=== PATIENT | female | born 1975 | race Asian ===

== ENCOUNTER 2016-04-22 14:36 | Emergency (ER) | payer OTHER ==
[~2016-04-22] VITALS: Ht 157.5 cm; Wt 53.7 kg
[~2016-04-22 14:36] MED LIST: ATARAX,VISTARIL25 MG PO; CALCIUM 500 +1 EACH PO; CIPROFLOXACIN500 M1 PO; CYMBALTA30 MG PO; DAILY VITE1 EAC1 PO; DIMENHYDRINATE50 MG PO; DOCU LIQUI50 MG/5 ML PO; FAMOTIDINE40 MG PO; FLEXERIL10 MG PO; HORIZANT600 MG PO; HYDROCODON-ACE1 EAC7 PO; INDOCIN25 MG PO; LYRICA75 MG PO; MECLIZINE HCL25 MG PO; METOCLOPRAMIDE H5 MG PO; MIRAPEX1.5 MG PO; MOTRIN600 MG PO; NAPROSYN500 MG PO; NEURONTIN300 MG PO; NEURONTIN600 MG PO; NOHOMEMEDS; NORCO 5/3251 TABLET PO; PAXIL20 MG PO; PERCOCET 5/31 TABLET PO; POLYETHYLENE GL17 GM PO; PREDNISONE10 M1 PO; PROTONIX40 MG PO; PROVENTIL,VENTOL2 MG PO; PROZAC40 MG PO; RANITIDINE HCL150 MG PO; ROPINIROLE HC0.25 MG PO; ROPINIROLE HCL1 MG PO; TRAMADOL HCL50 MG PO; TRAZODONE HCL50 MG PO; ULTRAM50 MG PO; VALIUM5 MG PO; VALTREX1000 MG PO; VENTOLIN HFA18 GM IH; VITAMIN B12 100MCG PO; WELLBUTRIN100 MG PO
[2016-04-22] MEDS ORDERED: MEDROL DOSEPAK4 MG PO (15:41)
[2016-04-22] MEDS ORDERED: ATARAX,VISTARIL50 MG PO (15:41)
[2016-04-22 15:56] VITALS: BP 117/93
== END 2016-04-22 15:57 | disposition home or self-care (01) ==
LOC: EXP 14:36 → EME 14:36 → EXP 15:57
DX: R21 Rash and other nonspecific skin eruption (principal); L53.9 Erythematous condition, unspecified; L29.9 Pruritus, unspecified; G89.29 Other chronic pain; M79.7 Fibromyalgia; K21.9 Gastro-esophageal reflux disease without esophagitis; F17.200 Nicotine dependence, unspecified, uncomplicated
CPT/HCPCS: 99281; 99284; Q0177

== ENCOUNTER 2016-07-22 09:29 | Emergency (ER) | payer OTHER ==
[~2016-07-22] VITALS: Ht 157.5 cm; Wt 53.6 kg
[~2016-07-22 09:29] MED LIST changes: +ATARAX,VISTARIL50 MG PO; +MEDROL DOSEPAK4 MG PO
[2016-07-22 10:26] LABS: HEMATOCRIT 40.5 % (36.0-46.0); MCH 32.7 PG (29.0-34.0); MCHC 34.6 G/DL (30.0-36.0); MCV 94.6 FL (83-99); MEAN PLAT.VOLUME 9.3 uM^3 (9.5-12.4); PLATELET COUNT 320 K/uL (156-360); RBC DIS.WIDTH-CV 11.8 % (11.8-14.6); RBC DIS.WIDTH-SD 40.8 % (39-53); RED BLOOD COUNT 4.28 M/uL (3.80-5.20); WHITE BLOOD COUNT 6.5 K/uL (4.1-10.2)
[2016-07-22 10:35] LABS: ADD MIUA? NO; BILIRUBIN NEGATIVE; BLOOD NEGATIVE; COLOR STRAW ((YELLOW)); GLUCOSE (STRIP) NEGATIVE; KETONES NEGATIVE; LEUKOCYTES NEGATIVE; NITRITE NEGATIVE; PROTEIN (STRIP) NEGATIVE; SPECIFIC GRAVITY 1.008 (1.000-1.030); UROBILINOGEN 0.2 MG/DL (0.2-1.0)
[2016-07-22 10:37] LABS: CHLORIDE 112 mEq/L (99-109); POTASSIUM 4.5 mEq/L (3.7-5.4); SODIUM 144 mEq/L (136-147)
[2016-07-22 10:39] LABS: GLUCOSE 97 mg/dL (70-99)
[2016-07-22 10:40] LABS: ANION GAP 13 MEQ/L (2-14)
[2016-07-22 10:42] LABS: SERUM ETHYL ALCOHOL < 10 mg/dL
[2016-07-22 10:43] LABS: GFR ESTIMATE (CALCULATED) > 59 mL/min/; UREA NITROGEN (BUN) 11 mg/dL (9-23)
[2016-07-22 11:25] LABS: AMPHETAMINE NEGATIVE (500 ng/mL); BARBITURATES NEGATIVE (200 ng/mL); BENZODIAZEPINES NEGATIVE (150 ng/mL); COCAINE NEGATIVE (150 ng/mL); INTERNAL CONTROLS VALID? YES; METHADONE NEGATIVE (200 ng/mL); METHAMPHETAMINE NEGATIVE (500 ng/mL); OPIATES (MORPHINE) NEGATIVE (100 ng/mL); OXYCODONE NEGATIVE (100 ng/mL); PHENCYCLIDINE NEGATIVE (25 ng/mL); PROPOXYPHENE NEGATIVE (300 ng/mL); THC CANNABINOIDS NEGATIVE (50 ng/mL); TRICYCLIC ANTIDEPRESSANTS NEGATIVE (300 ng/mL)
[2016-07-22 12:00] VITALS: BP 105/70
== END 2016-07-22 12:00 | disposition home or self-care (01) ==
LOC: EME 09:29
PROVIDERS: Emergency Medicine
DX: S40.029A Contusion of unspecified upper arm, initial encounter (principal); M25.512 Pain in left shoulder; M25.562 Pain in left knee; M25.552 Pain in left hip; M54.89 Other dorsalgia; M54.2 Cervicalgia; V49.40XA Driver injured in collision with unspecified motor vehicles in traffic accident, initial encounter; G89.29 Other chronic pain; Z72.0 Tobacco use
CPT/HCPCS: 72040; 72070; 73030; 73502; 73564; 80048; 81003; 85027; 99281; 99285; G0480; J2405; J3010

== ENCOUNTER 2016-09-20 23:14 | Emergency (ER) | payer OTHER ==
[~2016-09-20] VITALS: Ht 157.5 cm; Wt 55.0 kg
[2016-09-21 00:19] LABS: HEMATOCRIT 37.2 % (36.0-46.0); MCH 32.7 PG (29.0-34.0); MCHC 34.7 G/DL (30.0-36.0); MCV 94.4 FL (83-99); MEAN PLAT.VOLUME 9.4 uM^3 (9.5-12.4); PLATELET COUNT 325 K/uL (156-360); RBC DIS.WIDTH-SD 42.4 % (39-53); RED BLOOD COUNT 3.94 M/uL (3.80-5.20); WHITE BLOOD COUNT 9.6 K/uL (4.1-10.2)
[2016-09-21 00:28] LABS: CHLORIDE 111 mEq/L (99-109); POTASSIUM 3.5 mEq/L (3.7-5.4); SODIUM 141 mEq/L (136-147)
[2016-09-21 00:30] LABS: GLUCOSE 88 mg/dL (70-99)
[2016-09-21 00:32] LABS: ANION GAP 9 MEQ/L (2-14); TOTAL BILIRUBIN 0.6 mg/dL (0.0-1.0)
[2016-09-21 00:34] LABS: ALKALINE PHOSPHATASE 54 IU/L (3-129); GFR ESTIMATE (CALCULATED) > 59 mL/min/
[2016-09-21 00:35] LABS: UREA NITROGEN (BUN) 11 mg/dL (9-23)
[2016-09-21 00:37] LABS: LIPASE 24 U/L (1.0-51.0)
[2016-09-21 00:52] LABS: ADD MIUA? YES; BILIRUBIN NEGATIVE; BLOOD NEGATIVE; COLOR YELLOW ((YELLOW)); GLUCOSE (STRIP) NEGATIVE; KETONES 5; LEUKOCYTES TRACE; NITRITE NEGATIVE; PROTEIN (STRIP) 30; SPECIFIC GRAVITY 1.016 (1.000-1.030); UROBILINOGEN 0.2 MG/DL (0.2-1.0)
[2016-09-21 01:14] LABS: RED BLOOD CELLS NONE SEEN /HPF (0-5)
[2016-09-21 01:15] LABS: AMORPHOUS PHOSPHATE CRYSTALS 3+; BACTERIA 1+ /HPF; CASTS NONE SEEN /LPF; CRYSTALS PRESENT; EPITHELIAL CELLS RARE /HPF; MUCUS NONE SEEN /LPF; WHITE BLOOD CELLS 0-5 /HPF (0-5)
[2016-09-21] MEDS ORDERED: REGLAN10 MG PO (01:44)
[2016-09-21] MEDS ORDERED: BENTYL20 MG PO (01:44)
[2016-09-21] MEDS ORDERED: KEFLEX500 MG PO (01:44)
[2016-09-21 02:31] VITALS: BP 133/90
== END 2016-09-21 02:45 | disposition home or self-care (01) ==
LOC: EME 23:14
PROVIDERS: Physician Assistant
DX: N39.0 Urinary tract infection, site not specified (principal); E86.0 Dehydration; R11.2 Nausea with vomiting, unspecified; K21.9 Gastro-esophageal reflux disease without esophagitis; M79.7 Fibromyalgia; F32.9 Major depressive disorder, single episode, unspecified; F17.200 Nicotine dependence, unspecified, uncomplicated; Z91.14 Patient's other noncompliance with medication regimen; Z88.0 Allergy status to penicillin
CPT/HCPCS: 80053; 81003; 83690; 85027; 87086; 99281; 99285; J0696; J1885; J2405; J7030; J7050

== ENCOUNTER 2016-10-29 00:03 | Emergency (ER) | payer OTHER ==
[~2016-10-29] VITALS: Ht 157.5 cm; Wt 53.9 kg
[~2016-10-29 00:03] MED LIST changes: +BENTYL20 MG PO; +KEFLEX500 MG PO; +REGLAN10 MG PO
[2016-10-29 01:07] VITALS: BP 108/79
[2016-10-29 01:15] LABS: POINT-OF-CARE METER ID UU13113702
== END 2016-10-29 01:13 | disposition home or self-care (01) ==
LOC: EME 00:03
PROVIDERS: Emergency Medicine
DX: G43.909 Migraine, unspecified, not intractable, without status migrainosus (principal); H53.2 Diplopia; Z90.710 Acquired absence of both cervix and uterus; Z72.0 Tobacco use
CPT/HCPCS: 82948; 99281; 99284; J1885

== ENCOUNTER 2016-11-02 00:17 | Emergency (ER) | payer OTHER ==
[~2016-11-02] VITALS: Ht 157.5 cm; Wt 54.5 kg
[2016-11-02] MEDS ORDERED: NAPROXEN500 MG PO (01:58)
[2016-11-02 02:11] VITALS: BP 137/70
== END 2016-11-02 02:19 | disposition home or self-care (01) ==
LOC: EME 00:17 → EXP 00:17 → EME 00:17 → EXP 02:19
DX: S83.92XA Sprain of unspecified site of left knee, initial encounter (principal); W18.49XA Other slipping, tripping and stumbling without falling, initial encounter; Y93.F9 Activity, other caregiving; Y92.239 Unspecified place in hospital as the place of occurrence of the external cause; Y99.0 Civilian activity done for income or pay; F41.9 Anxiety disorder, unspecified; F32.9 Major depressive disorder, single episode, unspecified; Z88.0 Allergy status to penicillin
CPT/HCPCS: 73564; 99281; 99284

== ENCOUNTER → 2016-11-07 | Outpatient (CLI) | payer OTHER ==
[~2016-11-07] MED LIST changes: +NAPROXEN500 MG PO
== END | disposition home or self-care (01) ==
LOC: NUC 12:45
DX: R10.13 Epigastric pain (principal)
CPT/HCPCS: 78227; A9537; J2805

== ENCOUNTER 2016-12-28 00:06 | Emergency (ER) | payer OTHER ==
[~2016-12-28] VITALS: Ht 157.5 cm; Wt 51.0 kg
[2016-12-28 00:28] VITALS: BP 118/82
== END 2016-12-28 02:56 | disposition home or self-care (01) ==
LOC: EXP 00:06 → EME 00:06 → EXP 02:56
DX: S80.02XA Contusion of left knee, initial encounter (principal); Y04.0XXA Assault by unarmed brawl or fight, initial encounter; Y93.F9 Activity, other caregiving; Y92.239 Unspecified place in hospital as the place of occurrence of the external cause; Y99.0 Civilian activity done for income or pay; F17.200 Nicotine dependence, unspecified, uncomplicated
CPT/HCPCS: 73564; 99281; 99284

== ENCOUNTER 2017-01-04 21:17 | Emergency (ER) | payer SELFPAY ==
[~2017-01-04] VITALS: Ht 157.5 cm; Wt 52.2 kg
[2017-01-04] MEDS ORDERED: ATARAX,VISTARIL25 MG PO (23:20)
[2017-01-04 23:58] VITALS: BP 132/67
== END 2017-01-05 | disposition home or self-care (01) ==
LOC: EME 21:17 → EXP 21:17
DX: F41.9 Anxiety disorder, unspecified (principal); F17.200 Nicotine dependence, unspecified, uncomplicated
CPT/HCPCS: 99281; 99285; Q0177

== ENCOUNTER 2017-04-13 09:36 | Emergency (ER) | payer OTHER ==
[~2017-04-13] VITALS: Ht 157.5 cm; Wt 52.2 kg
[2017-04-13 10:37] LABS: HEMATOCRIT 37.6 % (36.0-46.0); HEMOGLOBIN 13.2 G/DL (11.9-15.5); MCH 32.6 PG (29.0-34.0); MCHC 35.1 G/DL (30.0-36.0); MCV 92.8 FL (83-99); PLATELET COUNT 358 K/uL (156-360); RBC DIS.WIDTH-CV 12.2 % (11.8-14.6); RED BLOOD COUNT 4.05 M/uL (3.80-5.20); WHITE BLOOD COUNT 5.8 K/uL (4.1-10.2)
[2017-04-13 10:49] LABS: CHLORIDE 112 mEq/L (99-109); SODIUM 139 mEq/L (136-147)
[2017-04-13 10:51] LABS: GLUCOSE 93 mg/dL (70-99)
[2017-04-13 10:55] LABS: CREATININE 0.7 mg/dL (0.6-1.3); GFR ESTIMATE (CALCULATED) > 59 mL/min/
[2017-04-13 10:56] LABS: UREA NITROGEN (BUN) 10 mg/dL (9-23)
[2017-04-13 10:57] LABS: TROP-I INTERPRETATION NEGATIVE; TROPONIN-I < 0.01 ng/mL (0.0-0.30)
[2017-04-13] MEDS ORDERED: MOBIC7.5 MG PO (12:26)
[2017-04-13 12:39] LABS: D-DIMER ELISA < 150.00 ng/mLDDU (<230)
[2017-04-13 12:53] LABS: TROP-I INTERPRETATION NEGATIVE; TROPONIN-I < 0.01 ng/mL (0.0-0.30)
[2017-04-13 13:45] VITALS: BP 107/83
== END 2017-04-13 13:49 | disposition home or self-care (01) ==
LOC: EME 09:36
PROVIDERS: Nurse Practitioner Family
DX: R07.89 Other chest pain (principal); K21.9 Gastro-esophageal reflux disease without esophagitis; M79.7 Fibromyalgia; G25.81 Restless legs syndrome; F41.9 Anxiety disorder, unspecified; F32.9 Major depressive disorder, single episode, unspecified; Z90.710 Acquired absence of both cervix and uterus; F17.200 Nicotine dependence, unspecified, uncomplicated; Z91.040 Latex allergy status; Z88.2 Allergy status to sulfonamides; Z88.0 Allergy status to penicillin; Z88.8 Allergy status to other drugs, medicaments and biological substances; Z91.041 Radiographic dye allergy status
CPT/HCPCS: 71046; 80048; 84484; 85027; 85379; 93005; 99281; 99284

== ENCOUNTER 2017-09-11 07:02 | Emergency (ER) | payer OTHER ==
[~2017-09-11] VITALS: Ht 157.5 cm; Wt 50.9 kg
[~2017-09-11 07:02] MED LIST changes: +MOBIC7.5 MG PO
[2017-09-11 07:33] LABS: HEMATOCRIT 33.6 % (36.0-46.0); HEMOGLOBIN 11.8 G/DL (11.9-15.5); MCH 33.7 PG (29.0-34.0); MCHC 35.1 G/DL (30.0-36.0); PLATELET COUNT 277 K/uL (156-360); RBC DIS.WIDTH-CV 12.4 % (11.8-14.6); RBC DIS.WIDTH-SD 42.9 % (39-53); WHITE BLOOD COUNT 6.3 K/uL (4.1-10.2)
[2017-09-11 08:06] LABS: CHLORIDE 116 MEQ/L (99-109); CREATININE 0.8 MG/DL (0.6-1.3); GFR ESTIMATE (CALCULATED) > 59 mL/min/; GLUCOSE 82 mg/dL (70-99); POTASSIUM 4.9 MEQ/L (3.7-5.4); SODIUM 141 MEQ/L (136-147); UREA NITROGEN (BUN) 13 mg/dL (9-23)
[2017-09-11] MEDS ORDERED: VENTOLIN HFA18 GM IH (11:07)
[2017-09-11 11:41] VITALS: BP 110/70
== END 2017-09-11 11:44 | disposition home or self-care (01) ==
LOC: EME 07:02
DX: J20.9 Acute bronchitis, unspecified (principal); F17.200 Nicotine dependence, unspecified, uncomplicated; M79.7 Fibromyalgia; K21.9 Gastro-esophageal reflux disease without esophagitis; G25.81 Restless legs syndrome; F41.9 Anxiety disorder, unspecified; F32.9 Major depressive disorder, single episode, unspecified; Z90.710 Acquired absence of both cervix and uterus; Z91.040 Latex allergy status; Z91.041 Radiographic dye allergy status; Z88.2 Allergy status to sulfonamides; Z88.0 Allergy status to penicillin; Z88.8 Allergy status to other drugs, medicaments and biological substances
CPT/HCPCS: 71046; 80048; 85027; 93005; 94640; 99281; 99284

== ENCOUNTER 2017-10-26 18:25 | Emergency (ER) | payer OTHER ==
[~2017-10-26] VITALS: Ht 157.5 cm; Wt 49.5 kg
[2017-10-26 19:24] LABS: APPEARANCE CLEAR ((CLEAR)); BILIRUBIN NEGATIVE; BLOOD MODERATE; COLOR YELLOW ((YELLOW)); GLUCOSE (STRIP) NEGATIVE; KETONES 5; LEUKOCYTES TRACE; NITRITE NEGATIVE; PROTEIN (STRIP) NEGATIVE; SPECIFIC GRAVITY 1.024 (1.000-1.030); UROBILINOGEN 0.2 MG/DL (0.2-1.0)
[2017-10-26 19:30] LABS: BACTERIA NONE SEEN /HPF; EPITHELIAL CELLS 1+ /HPF; MUCUS TRACE /LPF; UCUL ADDED? NO; WHITE BLOOD CELLS 0-5 /HPF (0-5)
[2017-10-26 20:55] LABS: HEMATOCRIT 38.1 % (36.0-46.0); HEMOGLOBIN 13.8 G/DL (11.9-15.5); MCH 33.8 PG (29.0-34.0); MCHC 36.2 G/DL (30.0-36.0); MCV 93.4 FL (83-99); PLATELET COUNT 354 K/uL (156-360); RBC DIS.WIDTH-CV 11.9 % (11.8-14.6); RBC DIS.WIDTH-SD 40.5 % (39-53); RED BLOOD COUNT 4.08 M/uL (3.80-5.20); WHITE BLOOD COUNT 8.4 K/uL (4.1-10.2)
[2017-10-26 21:06] LABS: ALBUMIN 4.7 g/dL (3.2-4.8); CHLORIDE 111 mEq/L (99-109); POTASSIUM 3.7 mEq/L (3.7-5.4); SODIUM 141 mEq/L (136-147)
[2017-10-26 21:08] LABS: GLUCOSE 103 mg/dL (70-99)
[2017-10-26 21:09] LABS: TOTAL PROTEIN 7.8 g/dL (6.4-8.3)
[2017-10-26 21:10] LABS: TOTAL BILIRUBIN 0.3 mg/dL (0.0-1.0)
[2017-10-26 21:12] LABS: ALKALINE PHOSPHATASE 73 IU/L (3-129); CREATININE 0.8 mg/dL (0.6-1.3); GFR ESTIMATE (CALCULATED) > 59 mL/min/
[2017-10-26 21:13] LABS: UREA NITROGEN (BUN) 9 mg/dL (9-23)
[2017-10-26 21:14] LABS: AST (GOT) 14 IU/L (2-34)
[2017-10-26 21:15] LABS: ALT (GPT) 9 IU/L (3-49); LIPASE 40 U/L (1.0-51.0)
[2017-10-26 21:22] LABS: QUANTITATIVE HCG < 4.0 MIU/ML
[2017-10-26] MEDS ORDERED: NAPROSYN500 MG PO (21:46)
[2017-10-26 22:14] VITALS: BP 127/63
== END 2017-10-26 22:14 | disposition home or self-care (01) ==
LOC: EME 18:25 → RME 18:25
PROVIDERS: Physician Assistant
DX: R10.9 Unspecified abdominal pain (principal); R31.9 Hematuria, unspecified; K21.9 Gastro-esophageal reflux disease without esophagitis; M79.7 Fibromyalgia; G25.81 Restless legs syndrome; F32.9 Major depressive disorder, single episode, unspecified; F17.200 Nicotine dependence, unspecified, uncomplicated; Z90.710 Acquired absence of both cervix and uterus; Z91.040 Latex allergy status; Z91.041 Radiographic dye allergy status; Z88.0 Allergy status to penicillin; Z88.2 Allergy status to sulfonamides; Z88.8 Allergy status to other drugs, medicaments and biological substances
CPT/HCPCS: 74176; 80053; 81003; 83690; 84702; 85027; 99281; 99284; J3010; J7030